=== PATIENT | female | born 1985 | race Caucasian/White ===

== ENCOUNTER 2017-03-07 18:59 | Emergency (ER) | payer OTHER ==
[2017-03-07 19:43] VITALS: BP 118/89
== END 2017-03-07 19:43 | disposition home or self-care (01) ==
LOC: ED 18:59
DX: R10.9 Unspecified abdominal pain (principal)

== ENCOUNTER 2018-05-22 00:53 | Emergency (ER) | payer OTHER ==
[~2018-05-22] VITALS: Ht 157.5 cm; Wt 72.6 kg
[2018-05-22 01:06] VITALS: Ht 157.5 cm; Wt 72.6 kg
[2018-05-22 02:13] VITALS: BP 114/80
== END 2018-05-22 02:13 | disposition home or self-care (01) ==
LOC: ED 00:53
DX: N39.0 Urinary tract infection, site not specified (principal)